=== PATIENT | female | born 1940 | race Two or more races ===

== ENCOUNTER 2017-03-01 13:36 | Emergency (ER) | payer OTHER ==
[2017-03-01 13:41] VITALS: BP 166/90; PULSE 84; TEMP 97.4; BMI 31.2
--- NOTE | 2017-03-01 14:20 | PDOC ---
History of Present Illness - General Chief Complaint: Vomiting/Diarrhea Stated Complaint: DIZZINESS, VOMITING Time Seen by Provider: 03/01/17 14:00 History Source: Patient Exam Limitations: No Limitations - History of Present Illness Initial Comments: 03/01/17 14:15 76 yo F with h/o HTN here with c/o feeling dizzy with nausea and loose stool. pt states awoke with symptoms this morning. no weakness does describe vertigo. has felt imbalanced like " shes drunk" when walking no vision changes. no focal weakness. no other mod factors. no tinnitus. no h/o cva. no other complaints. no new medications. reports three loose watery stools, all nonbloody. no abd pain. Timing/Duration: 24 hours Severity: mild Past History - Past Medical History Allergies/Adverse Reactions: Allergies Allergy/AdvReac Type Severity Reaction Status Date / Time No Known Drug Allergies Allergy Verified 03/01/17 13:41 SEAFOOD Allergy FACE AND Uncoded 03/01/17 13:41 MOUTH SWELLING Home Medications: Ambulatory Orders Losartan/Hydrochlorothiazide [Losartan-Hctz 100-25 mg Tab] 1 each PO DAILY 04/14 Aspirin [ASA -] 325 mg PO DAILY #0 tablet 04/18/15 Meclizine HCl 25 mg PO QID PRN #20 tablet 03/01/17 Anemia: No Asthma: No Cancer: No Cardiac Disorders: No CVA: No COPD: No CHF: No Dementia: No Diabetes: No GI Disorders: No Disorders: No HTN: Yes Hypercholesterolemia: No Liver Disease: No Seizures: No Thyroid Disease: No Other medical history: vitamin D defficiency - Surgical History Abdominal Surgery: No Appendectomy: No Cardiac Surgery: No Cholecystectomy: Yes Lung Surgery: No Neurologic Surgery: No Orthopedic Surgery: No - Psycho/Social/Smoking Cessation Hx Suicidal Ideation: No Smoking History: Never smoked Have you smoked in the past 12 months: No Information on smoking cessation initiated: No Hx Alcohol Use: No Drug/Substance Use Hx: No Substance Use Type: None Hx Substance Use Treatment: No Review of Systems - Review of Systems Constitutional: No: Chills, Diaphoresis HEENTM: No: Eye Pain, Blurred Vision, Throat Pain Respiratory: No: Cough, Orthopnea, Shortness of Breath Cardiac (ROS): No: See HPI, Chest Pain, Edema ABD/GI: Yes: Diarrhea, Nausea, Vomiting : No: Burning, Dysuria Musculoskeletal: No: Muscle Weakness Neurological: Yes: Unsteady Gait, Other (vertigo) Psychiatric: No: Anxiety, Depression All Other Systems: Reviewed and Negative *Physical Exam - Vital Signs Last Vital Signs Temp Pulse Resp BP Pulse Ox 97.4 F L 84 17 166/90 98 03/01/17 13:39 03/01/17 13:39 03/01/17 13:39 03/01/17 13:39 03/01/17 13:39 - Physical Exam General Appearance: Yes: Nourished HEENT: positive: Normal ENT Inspection. negative: Nasal Congestion, Rhinorrhea Respiratory/Chest: positive: Lungs Clear, Normal Breath Sounds. negative: Respiratory Distress, Accessory Muscle Use Cardiovascular: positive: Regular Rhythm, Regular Rate. negative: Edema Gastrointestinal/Abdominal: positive: Normal Bowel Sounds. negative: Tender, Tenderness Musculoskeletal: positive: Normal Inspection. 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 neg romberg pos hallpike to left. ) Heart Score/ECG Review - ECG Intrepretation Rhythm: Regular Rhythm Comment:: 03/01/17 14:31 rate 64 bpm, no st elevation or depression. - [place]: Normal ED Treatment Course - LABORATORY CBC & Chemistry Diagram: 03/01/17 14:30 03/01/17 14:30 Medical Decision Making - Medical Decision Making 03/01/17 14:29 6 yo F with h/o HTN here wtih vertigo since this am, awoke with sxs, n/v. differential likley peripheral vertigo. normal cerebellar examand post hallpikes to right. plan meclizine, labs lytes and ct . reassess. 03/01/17 17:09 pt states feeling better after meclizine. head ct normal. will dc home fu pcp. given rx for meclizline *DC/Admit/Observation/Transfer Diagnosis at time of Disposition: Positional vertigo - Discharge Dispostion Admit: No - Prescriptions Prescriptions: Meclizine HCl 25 mg PO QID PRN #20 tablet PRN Reason: Vertigo - Referrals Referrals: Aurelia Bhatia [Primary Care Provider] - - Patient Instructions Printed Discharge Instructions: Benign Paroxysmal Positional Vertigo Additional Instructions: necesita hacer carmen rohith con tu medico, . puede daniel la medicine meclizine, 25 mg cada 6 horas si necesita por vertigos. si tiene mas problemas con caminando, or vomitando, devuelve immediamente. Print Language: MALIAN
[2017-03-01] MEDS ORDERED: MECLIZINE HCL 25 MG TABLET (FP) PO ONE (14:31)
[2017-03-01] MEDS ORDERED: SODIUM CHLORIDE 0.9% 1000 ML INFUS.BAG IV ONE (14:33)
[2017-03-01] MEDS ORDERED: MECLIZINE HCL 25 MG TABLET (FP) ONE (14:36)
[2017-03-01 14:46] LABS: BASOPHIL 0.7 % (0-2.0); MCH 29.7 pg (25.7-33.7); MCHC 33.3 g/dl (32.0-36.0); MEAN CELL VOLUME 89.1 fl (80-96); MEAN PLT VOLUME 9.8 fl (7.5-11.1); NEUTROPHILS 79.6 % (42.8-82.8); PLATELET COUNT 116 K/MM3 (134-434); RDW 14.3 % (11.6-15.6); WHITE BLOOD COUNT 5.1 K/mm3 (4.0-10.0)
[2017-03-01 15:25] LABS: ALBUMIN 3.4 g/dl (3.4-5.0); ALK PHOS 87 U/L (45-117); ANION GAP 9 (8-16); BILIRUBIN,TOTAL 0.6 mg/dL (0.2-1.0); CALCIUM 8.9 mg/dL (8.5-10.1); CO2 28 mmol/L (21-32); COCKROFT - GAULT 111.3755; CREATININE 0.5 mg/dL (0.55-1.02); GLUCOSE,RANDOM 100 mg/dL (74-106); SGOT/AST 15 U/L (15-37); SGPT/ALT 15 U/L (12-78); TOT PROT 6.8 g/dl (6.4-8.2)
--- NOTE | 2017-03-01 17:20 | EKG ---
Test Reason : Blood Pressure : / mmHG Vent. Rate : 064 BPM Atrial Rate : 064 BPM P-R Int : 214 ms QRS Dur : 090 ms QT Int : 420 ms P-R-T Axes : 050 006 040 degrees QTc Int : 433 ms SINUS RHYTHM WITH 1ST DEGREE A-V BLOCK OTHERWISE NORMAL ECG NO PREVIOUS ECGS AVAILABLE Confirmed by ROXANE NEFF, DEWEY ([id number]) on 03/01/2017 5:19:59 PM Referred By: Confirmed By:DEWEY BETTS MD
== END 2017-03-01 17:36 | disposition home or self-care (01) ==
LOC: JER 13:36
DX: H81.10 Benign paroxysmal vertigo, unspecified ear (principal); I10 Essential (primary) hypertension; E55.9 Vitamin D deficiency, unspecified
CPT/HCPCS: 36415; 70450-TC; 80053; 85025; 93005; 93010; 99283-25

== ENCOUNTER 2019-02-27 10:50 | Observation (INO) | payer OTHER ==
[2019-02-27] MEDS ORDERED: MECLIZINE HCL 12.5 MG TABLET PO ONE (11:48)
--- NOTE | 2019-02-27 11:53 | PDOC ---
History of Present Illness - General Chief Complaint: Lightheaded Stated Complaint: LIGHT HEADED Time Seen by Provider: 02/27/19 11:29 History Source: Patient Exam Limitations: No Limitations - History of Present Illness Initial Comments: 02/27/19 11:49 78 y/o female with PMH of HTN presents to the ED with complaints of dizzness . per patient and pateints son, she wok up this morning with some associated dizziness and nausea. She had some trouble walking and she states that she "fells as if shes drunk", as she felt like she was swaying from side to side. It is not related to position, moving her head form side to side or getting up quicly does not change the intensity. SHe did have one episode of diarrhea however no vomiting. She denies any inner ear pain or any other systemic symptoms. She was here about a year ago with similar symptoms however did not see an ENT or neurologist. She denies any sick contacts or any recent travel . she denies any chest pains or any shortness of breath. Timing/Duration: 1-3 hours Severity: mild Associated Symptoms: denies: chest pain, cough, shortness of breath Past History - Travel Traveled outside of the country in the last 30 days: No Close contact w/someone who was outside of country & ill: No - Past Medical History Allergies/Adverse Reactions: Allergies Allergy/AdvReac Type Severity Reaction Status Date / Time No Known Drug Allergies Allergy Verified 02/27/19 11:41 SEAFOOD Allergy FACE AND Uncoded 02/27/19 11:41 MOUTH SWELLING Home Medications: Ambulatory Orders Losartan/Hydrochlorothiazide [Losartan-Hctz 100-25 mg Tab] 1 each PO DAILY 04/14 Meclizine HCl 25 mg PO QID PRN #20 tablet 03/01/17 Cholecalciferol (Vitamin D3) [Vitamin D3] 5,000 unit PO WEEKLY 02/27/19 Anemia: No Asthma: No Cancer: No Cardiac Disorders: No CVA: No COPD: No CHF: No Dementia: No Diabetes: No GI Disorders: No Disorders: No HTN: Yes Hypercholesterolemia: No Liver Disease: No Seizures: No Thyroid Disease: No - Surgical History Abdominal Surgery: No Appendectomy: No Cardiac Surgery: No Cholecystectomy: Yes Lung Surgery: No Neurologic Surgery: No Orthopedic Surgery: No - Immunization History Immunization Up to Date: No - Suicide/Smoking/Psychosocial Hx Smoking History: Never smoked Have you smoked in the past 12 months: No Information on smoking cessation initiated: No Hx Alcohol Use: Yes Drug/Substance Use Hx: No Substance Use Type: None Hx Substance Use Treatment: No Review of Systems - Review of Systems Able to Perform ROS?: Yes Is the patient limited [place] proficient: No Constitutional: No: Fever, Weakness HEENTM: No: Blurred Vision Respiratory: No: Shortness of Breath Cardiac (ROS): No: Chest Pain, Palpitations ABD/GI: Yes: Diarrhea, Nausea : No: Burning, Dysuria Musculoskeletal: No: Back Pain Neurological: Yes: Dizziness. No: Numbness *Physical Exam - Vital Signs Last Vital Signs Temp Pulse Resp BP Pulse Ox 97.6 F 69 16 185/80 H 99 02/27/19 11:00 02/27/19 11:00 02/27/19 11:00 02/27/19 11:00 02/27/19 11:00 - Physical Exam General Appearance: Yes: Nourished HEENT: positive: Normal Voice Neck: positive: Normal Thyroid Respiratory/Chest: positive: Lungs Clear, Normal Breath Sounds Cardiovascular: positive: Regular Rhythm, Regular Rate, S1, S2, Edema (trace) Gastrointestinal/Abdominal: positive: Flat, Soft. negative: Tender Musculoskeletal: negative: CVA Tenderness Neurologic: positive: Fully Oriented, Motor Strength 5/5, Finger to Nose ( delayed B/L ), Other (gait: pateint was veering to the right while walking ) ED Treatment Course - RADIOLOGY Radiology Studies Ordered: Category Date Time Status HEAD CT WITHOUT CONTRAST [CT] Stat CT Scan 02/27/19 11:48 Ordered Medical Decision Making - Medical Decision Making 02/27/19 11:58 cbc/cmp/cardaic profle ekg fluids/meclizine head CT DDX: *DC/Admit/Observation/Transfer - Discharge Dispostion Condition at time of disposition: Stable - Referrals - Patient Instructions - Post Discharge Activity
[2019-02-27] MEDS ORDERED: MECLIZINE HCL 12.5 MG TABLET ONE (11:58)
[2019-02-27 12:34] LABS: ALBUMIN 3.3 g/dl (3.4-5.0); ALK PHOS 91 U/L (45-117); ANION GAP 5 MMOL/L (8-16); BILIRUBIN,TOTAL 0.6 mg/dL (0.2-1); BLOOD UREA NITROGEN 20 mg/dL (7-18); CALCIUM 9.3 mg/dL (8.5-10.1); CHLORIDE 108 mmol/L (98-107); CO2 27 mmol/L (21-32); CREATININE 0.5 mg/dL (0.55-1.3); GLUCOSE,RANDOM 124 mg/dL (74-106); POTASSIUM 4.5 mmol/L (3.5-5.1); SGOT/AST 17 U/L (15-37); SGPT/ALT 17 U/L (13-61); SODIUM 139 mmol/L (136-145)
--- NOTE | 2019-02-27 13:02 | PDOC ---
*Physical Exam - Vital Signs Last Vital Signs Temp Pulse Resp BP Pulse Ox 97.6 F 69 16 185/80 H 99 02/27/19 11:00 02/27/19 11:00 02/27/19 11:00 02/27/19 11:00 02/27/19 11:00 <Víctor Vogt - Last Filed: 02/27/19 13:02> - Vital Signs Last Vital Signs Temp Pulse Resp BP Pulse Ox 98.3 F 64 17 152/72 96 02/27/19 18:19 02/27/19 18:19 02/27/19 18:19 02/27/19 18:19 02/27/19 18:19 <Sanford Evangelista - Last Filed: 02/27/19 18:40> ED Treatment Course - LABORATORY CBC & Chemistry Diagram: 02/27/19 11:50 - ADDITIONAL ORDERS Additional order review: Laboratory Results 02/27/19 11:50 Sodium 139 Potassium 4.5 Chloride 108 H Carbon Dioxide 27 Anion Gap 5 L BUN 20 H Creatinine 0.5 L Creat Clearance w eGFR 119.64 Random Glucose 124 H Calcium 9.3 Total Bilirubin 0.6 AST 17 ALT 17 Alkaline Phosphatase 91 Creatine Kinase 50 Troponin I < 0.02 Total Protein 7.0 Albumin 3.3 L - Medications Given in the ED: ED Medications Discontinued Medications Generic Name Dose Route Start Last Admin Trade Name Freq PRN Reason Stop Dose Admin Meclizine HCl 12.5 mg 02/27/19 11:48 02/27/19 12:02 Antivert - PO 02/27/19 11:49 12.5 mg ONCE ONE Administration <Víctor Vogt - Last Filed: 02/27/19 13:02> - LABORATORY CBC & Chemistry Diagram: 02/27/19 18:05 02/27/19 11:50 - ADDITIONAL ORDERS Additional order review: Laboratory Results 02/27/19 11:50 Sodium 139 Potassium 4.5 Chloride 108 H Carbon Dioxide 27 Anion Gap 5 L BUN 20 H Creatinine 0.5 L Creat Clearance w eGFR 119.64 Random Glucose 124 H Calcium 9.3 Total Bilirubin 0.6 AST 17 ALT 17 Alkaline Phosphatase 91 Creatine Kinase 50 Troponin I < 0.02 Total Protein 7.0 Albumin 3.3 L - Medications Given in the ED: ED Medications Discontinued Medications Generic Name Dose Route Start Last Admin Trade Name Freq PRN Reason Stop Dose Admin Meclizine HCl 12.5 mg 02/27/19 11:48 02/27/19 12:02 Antivert - PO 02/27/19 11:49 12.5 mg ONCE ONE Administration <Sanford Evangelista - Last Filed: 02/27/19 18:40> Medical Decision Making - Medical Decision Making CT Head w/o evidence of acute pathology 02/27/19 13:02 <Víctor Vogt - Last Filed: 02/27/19 13:02> *DC/Admit/Observation/Transfer <Víctor Vogt - Last Filed: 02/27/19 13:02> - Discharge Dispostion Decision to Admit order: Yes <Sanford Evangelista - Last Filed: 02/27/19 18:40> Diagnosis at time of Disposition: Unsteady gait - Discharge Dispostion Condition at time of disposition: Stable
--- NOTE | 2019-02-27 14:23 | PDOC ---
Documentation entered by Dorie Fernandez SCRIBE, acting as scribe for Sanford Evangelista MD. Sanford Evangelista MD: This documentation has been prepared by the Jim burns Nirvannie, SCRIBE, under my direction and personally reviewed by me in its entirety. I confirm that the documentation accurately reflects all work, treatment, procedures, and medical decision making performed by me. Attending Attestation - Resident Resident Name: RadhamirellaKimberly - ED Attending Attestation I have performed the following: I have examined & evaluated the patient, The case was reviewed & discussed with the resident, I agree w/resident's findings & plan - HPI HPI: 02/27/19 14:11 CC: Dizziness HPI: The patient is a 78 year old female, with a significant past medical history of HTN, who presents to the emergency department with, 1 day of constant dizziness , worsening with walking with associated unsteadiness. She denies her dizziness to worsen with positioning. She denies recent chest pain or shortness of breath. Allergies: Seafood Primary Care Physician: Dr. Bhatia - Physicial Exam PE: 02/27/19 14:11 Exam Vitals: Triage Vital signs reviewed General Appearance: no acute distress, well nourished well developed, Head: Atraumatic, normocephalic Neck: Supple;No Nuchal rigidity Chest Wall: Nontender Cardiac: Regular rate and rhythm, no murmurs, no rubs, no gallops, Lungs: Clear to auscultation bilateral, good air movement bilaterally, Abdomen: Soft, nondistended, normal bowel sounds, nontender to palpation Rectal: Exam deferred Extremities: Full range of motion to all extremities, no cyanosis, clubbing, or edema Skin: Warm and dry, no rashes or lesions, no petechiae +Neuro: AOX3; Cranial Nerves 2-12 grossly intact, Ataxic gait. Psych: normal mood, normal affect - Medical Decision Making 02/27/19 16:49 Patient with chronic persistent unsteady gait feeling of being drunk with veering to the left and more difficulty with left finger to nose greater than right NIHSS score 1. Not TPA candidate Patient treated with IV fluids and meclizine history and examination not consistent with a clear-cut benign positional vertigo type story given age and risk factors we'll observe overnight for neurology consultation and possible MRI.
[2019-02-27] MEDS ORDERED: ENALAPRILAT DIHYDRATE 2.5 MG/2 ML VIAL IVPB PRN (17:04)
--- NOTE | 2019-02-27 17:27 | HP ---
CHIEF COMPLAINT: dizziness PCP: HISTORY OF PRESENT ILLNESS: The patient is a 78 year old female with a PMH of HTN, macular degeneration that presented to the hospital complaining of dizziness that started this morning at 7 AM. She was at home, preparing to work but started feeling "like drunk" and decided to come to the hospital. In Emergency Room she was given Meclizine. When I saw the patient she was still complainingof dizziness. She had similar symptoms few years ago, was prescribed Meclizine but her symptoms resolved and she didn't take it. The patient denies LOC, weakness, vision changes, headache, chest pain, palpitations. She took her morning BP medication today. 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 Family History: Mother: Asthma Father: htn 3 children, daughter ca Allergies No Known Drug Allergies Allergy (Verified 02/27/19 11:41) SEAFOOD Allergy (Uncoded 02/27/19 11:41) FACE AND MOUTH SWELLING HOME MEDICATIONS: Home Medications Medication Instructions Recorded Losartan/Hydrochlorothiazide 1 each PO DAILY 04/14/15 [Losartan-Hctz 100-25 mg Tab] Meclizine HCl 25 mg PO QID PRN #20 tablet 03/01/17 Cholecalciferol (Vitamin D3) 5,000 unit PO WEEKLY 02/27/19 [Vitamin D3] REVIEW OF SYSTEMS CONSTITUTIONAL: Absent: fever, chills, diaphoresis, generalized weakness, malaise, loss of appetite, weight change HEENT: Absent: rhinorrhea, nasal congestion, throat pain, throat swelling, difficulty swallowing, visual changes CARDIOVASCULAR: Absent: chest pain, syncope, palpitations, irregular heart rate, lightheadedness , peripheral edema RESPIRATORY: Absent: cough, shortness of breath, dyspnea with exertion, orthopnea, wheezing, GASTROINTESTINAL: Absent: abdominal pain, abdominal distension, nausea, vomiting, diarrhea, constipation GENITOURINARY: Absent: dysuria, frequency, urgency, hesitancy, hematuria, MUSCULOSKELETAL: Absent: myalgia, arthralgia, joint swelling, back pain ENDOCRINE: Absent: unexplained weight gain, unexplained weight loss NEUROLOGIC: dizziness, unsteady gait, Absent: headache, focal weakness or paresthesias, seizure PSYCHIATRIC: Absent: anxiety, depression, PHYSICAL EXAMINATION Vital Signs - 24 hr 02/27/19 02/27/19 02/27/19 11:00 16:00 16:02 Temperature 97.6 F Pulse Rate 69 Pulse Rate [ 68 65 Left Radial] Respiratory 16 Rate Blood Pressure 185/80 H Blood Pressure 187/77 H 211/64 H [Right Arm] O2 Sat by Pulse 99 Oximetry (%) GENERAL: Awake, alert, and fully oriented, in no acute distress. HEAD: Normal with no signs of trauma. EYES: Extraocular movements intact, sclera anicteric, conjunctiva clear. No lid lag. EARS, NOSE, THROAT: Moist mucous membranes. NECK: Normal range of motion, supple without lymphadenopathy, JVD, or masses. LUNGS: Breath sounds equal, clear to auscultation bilaterally. No wheezes, and no crackles. No accessory muscle use. HEART: Regular rate and rhythm, normal S1 and S2 without murmur, rub or gallop. ABDOMEN: Soft, nontender, not distended, normoactive bowel sounds, no guarding, no rebound. MUSCULOSKELETAL: Normal range of motion at all joints. UPPER EXTREMITIES: No peripheral edema. LOWER EXTREMITIES: 2+ pulses. No peripheral edema. NEUROLOGICAL: Non focal. Normal speech. PSYCHIATRIC: Cooperative. Good eye contact. Appropriate mood and affect. SKIN: Warm, dry, no rashes or lesions noted. Laboratory Results - last 24 hr 02/27/19 11:50 Sodium 139 Potassium 4.5 Chloride 108 H Carbon Dioxide 27 Anion Gap 5 L BUN 20 H Creatinine 0.5 L Creat Clearance w eGFR 119.64 Random Glucose 124 H Calcium 9.3 Total Bilirubin 0.6 AST 17 ALT 17 Alkaline Phosphatase 91 Creatine Kinase 50 Troponin I < 0.02 Total Protein 7.0 Albumin 3.3 L ASSESSMENT/PLAN: The patient is a 78 year old female with a PMH of HTN, macular degeneration that presented to the hospital complaining of dizziness that started this morning, she is admitted to telemetry r/o TIA. R/o TIA: -possible cerebellar infarct, may be vertigo or may be caused by elevated BP -CT head negative, will obtain MRI brain -stroke protocol -carotid US -ECHO ordered -fall precautions -avoid HCTZ, possible cause of dizziness also encourage PO water intake Hypertensive emergency: -unknown cause, the pt took her medication today -will give Enalapril -continue Norvasc 5 mg tomorrow -will follow up ECHO -telemetry monitoring -ekg-NSR, bradycardia DVT PPX: scds F/E/N; no/no changes/low Na Dispo: telemetry Problem List - Problem (1) Hypertensive emergency Code(s): I16.1 - HYPERTENSIVE EMERGENCY (2) Positional vertigo Code(s): H81.10 - BENIGN PAROXYSMAL VERTIGO, UNSPECIFIED EAR Visit type - Emergency Visit Emergency Visit: Yes ED Registration Date: 02/27/19 Care time: The patient presented to the Emergency Department on the above date and was hospitalized for further evaluation of their emergent condition. - New Patient This patient is new to me today: Yes Date on this admission: 02/27/19 - Critical Care Critical Care patient: No
--- NOTE | 2019-02-27 18:17 | CONSULT ---
Consult - text type - Consultation Consultation Note: NEUROLOGY CONSULT GREATLY APPRECIATED: Events reviewed and discussed with Dr. Bell and MIGUELANGEL Vasquez. Daughter and son at bedside. 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 PMH sig for: HTN, macular degeneration. Maintained on losartan/HCTZ. Has minimal assistance with ADL's from family. Ambulates independently. Surgical hx includes R TKR. Upon going from sitting to standing this AM, experienced brief "room-spinning" sensation and once walking "felt drunk" w nausea/diarrhea. Has felt a similar sensation four years ago requiring hospitalization here, which was attributed to "inner ear problem." Notes history of "Migraines" since childhood rare since menapause. +FH of SAEZ's in her son (severe leg pains as well.) Pt. denies SAEZ today. Dizziness is now markedly improved. Head CT (report available): no acute process/Normal Carotid duplex: no sig. stenosis. Calcified intimal plaque and thyroid nodule noted. MRI of brain (reviewed, not yet reported): Scattered microvascular changes including left internal capsule lacune. No cerebellar CVA. JOEY: BP 185/80. Cor reg. No bruit. Neck supple. Neg SLR. NEURO: Awake, alert. Ox "[facility]." February 28, 2019. TRUMP -> PMT. 12/29 recall @ 3 min. CNII-CNXII: EOM's full without nystagmus. Full otoole. No facial. Motor: No drift. Strength normal. No cogwheeling. Reflexes normal except AJ's B/L. Plantars silent. Coordination: No FTN dystaxia. Sensation: Normal to vibration. Romberg +/- Gait: Variable, unsteady. Impression: Non-focal exam Etiology of "dizziness", nausea, imbalance, confusion uncertain but would consider Hypertensive encephalopathy, labyrinthitis. Suggest: Orthostatic BP's Lower Systolic BP to < 130s and encourage compliance with meds D/C Meclizine (anti-cholinergic, may increase confusion) Await UA, C & S, B12, TSH, RPR Work up thyroid nodule program services assistant for home safety Thank you very much, Denny Dumont MD
[2019-02-27 18:27] LABS: BASO % 0.9 % (0-2.0); EOS % 1.1 % (0-4.5); HEMATOCRIT 37.1 % (32.4-45.2); HEMOGLOBIN 12.6 GM/dL (10.7-15.3); LYMPH % 23.7 % (8-40); MCH 29.7 pg (25.7-33.7); MCHC 33.9 g/dl (32.0-36.0); MEAN CELL VOLUME 87.6 fl (80-96); MEAN PLT VOLUME 10.1 fl (7.5-11.1); MONO % 7.8 % (3.8-10.2); NEUT % 66.5 % (42.8-82.8); PLATELET COUNT 132 K/MM3 (134-434); RBC 4.23 M/mm3 (3.60-5.2); RDW 14.7 % (11.6-15.6); WHITE BLOOD COUNT 4.6 K/mm3 (4.0-10.0)
[2019-02-27 18:33] LABS: URINE APPEARANCE CLEAR; URINE BILIRUBIN NEGATIVE (NEGATIVE); URINE COLOR YELLOW; URINE GLUCOSE (UA) NEGATIVE (NEGATIVE); URINE KETONE NEGATIVE (NEGATIVE); URINE LEUK ESTERASE NEGATIVE (NEGATIVE); URINE NITRITE NEGATIVE (NEGATIVE); URINE PROTEIN NEGATIVE (NEGATIVE); URINE UROBILINOGEN 0.2 mg/dL (0.2-1.0)
--- NOTE | 2019-02-27 19:37 | PN ---
Teaching Attending Note Name of Resident: Lora Griffin ATTENDING PHYSICIAN STATEMENT I saw and evaluated the patient. I reviewed the resident's note and discussed the case with the resident. I agree with the resident's findings and plan as documented. CC: I'm dizzy HPI: Ms Jett is a pleasant 78 year old female who comes in with dizziness. She says it began this morning. It's made worse with change in position. She felt unsteady when walking but did not fall. She had this once in the past but not this severe. She had nausea but no vomiting associated with it. Because of this she came into the ED. She denies fevers, chills, recent infections, passing out , changes in vision, tinnitus, chest pain, shortness of breath, abdominal pain, constipation, diarrhea, or swelling. PMHx: HTN, macular degeneration PSH: cataract removal Allergies: NKDA Meds Home Medications Medication Instructions Recorded Cholecalciferol (Vitamin D3) 5,000 unit PO WEEKLY 02/27/19 [Vitamin D3] Amlodipine Besylate [Norvasc -] 5 mg PO DAILY 30 Days #30 tablet 02/28/19 SHx: denies tobacco and recreational drug use. Rare alcohol intake FHx: mother with asthma ROS: full review of systems obtained, as per HPI and otherwise negative OBJECTIVE: Gen: nad, obese HEENT: perrla, eomi, no nystagmus Pulm: ctab w/o w/r/r CV: rrr w/o m/r/g Abd: +bs, s/nt/nd Ext: no c/c/e ASSESSMENT AND PLAN: Problem List - Problems (1) Hypertensive emergency Assessment/Plan: -will give dose of IV enalapril -stop HCTZ as can cause vertigo -add amlodipine -monitor Code(s): I16.1 - HYPERTENSIVE EMERGENCY (2) Positional vertigo Assessment/Plan: -consult neurology -ECHO, carotid ultrasound, MRI ordered -meclizine ordered -monitor overnight -PT consult Code(s): H81.10 - BENIGN PAROXYSMAL VERTIGO, UNSPECIFIED EAR
[2019-02-27] MEDS ORDERED: HEPARIN NA (PORCINE) 5,000 UNITS/ML 1ML VIAL SQ SCH (22:00)
[2019-02-27 22:03] VITALS: BMI 34.6
[2019-02-28 06:39] VITALS: TEMP 98.4
[2019-02-28 07:37] LABS: BASO % 0.7 % (0-2.0); EOS % 1.7 % (0-4.5); HEMATOCRIT 35.4 % (32.4-45.2); HEMOGLOBIN 11.5 GM/dL (10.7-15.3); LYMPH % 25.8 % (8-40); MCH 29.2 pg (25.7-33.7); MCHC 32.4 g/dl (32.0-36.0); MEAN PLT VOLUME 10.2 fl (7.5-11.1); MONO % 8.8 % (3.8-10.2); PLATELET COUNT 118 K/MM3 (134-434); RBC 3.94 M/mm3 (3.60-5.2); RDW 14.9 % (11.6-15.6); WHITE BLOOD COUNT 3.5 K/mm3 (4.0-10.0)
[2019-02-28 07:52] LABS: ALBUMIN 2.7 g/dl (3.4-5.0); ALK PHOS 76 U/L (45-117); ANION GAP 5 MMOL/L (8-16); BILIRUBIN,TOTAL 0.5 mg/dL (0.2-1); BLOOD UREA NITROGEN 21 mg/dL (7-18); CALCIUM 8.5 mg/dL (8.5-10.1); CHLORIDE 110 mmol/L (98-107); CHOLESTEROL 203 mg/dL (50-200); CO2 27 mmol/L (21-32); CREATININE 0.5 mg/dL (0.55-1.3); GLUCOSE,RANDOM 80 mg/dL (74-106); HDL CHOLESTEROL 84 mg/dL (40-60); MAGNESIUM 2.4 mg/dL (1.8-2.4); PHOSPHOROUS 3.8 mg/dL (2.5-4.9); POTASSIUM 3.7 mmol/L (3.5-5.1); SGOT/AST 13 U/L (15-37); SGPT/ALT 14 U/L (13-61); SODIUM 142 mmol/L (136-145); TOT PROT 5.8 g/dl (6.4-8.2); TRIGLYCERIDES 43 mg/dL (0-150)
--- NOTE | 2019-02-28 09:39 | ECHO ---
Name: RASHID, TEODORA Exam:Adult Echocardiogram Study Date: 02/28/2019 08:38 AM Age: 78 yrs Reason For Study: TIA Height: 60 in Weight: 169 lb BSA: 1.7 m2 MMode/2D Measurements & Calculations IVSd: 0.95 cm Ao root diam: 2.8 cm LVIDd: 4.1 cm LA dimension: 2.4 cm LVIDs: 2.2 cm LVPWd: 1.0 cm EDV(Teich): 74.7 ml LVOT diam: 2.0 cm ESV(Teich): 17.0 ml LAV (MOD-bp): 41.4 ml Doppler Measurements & Calculations MV E max dillon: 82.0 cm/sec Ao V2 max: 153.4 cm/sec MV A max dillon: 74.7 cm/sec Ao max P.4 mmHg MV E/A: 1.1 MV dec time: 0.21 sec TONIA(V,D): 2.5 cm2 LV V1 max P.2 mmHg MR max dillon: 401.0 cm/sec LV V1 max: 124.2 cm/sec MR max P.3 mmHg TR max dillon: 244.3 cm/sec PA V2 max: 114.0 cm/sec TR max P.9 mmHg PA max P.2 mmHg Med Peak E' Dillon: 8.7 cm/sec PI Vmax: 122.2 cm/sec Med E/e': 9.4 Lat Peak E' Dillon: 10.3 cm/sec Lat E/e': 7.9 Left Ventricle The left ventricular size, thickness and function are normal. Ejection Fraction = 60-65%. Left Ventri cular Filling pattern is normal for age. Right Ventricle The right ventricle is normal in size and function. Atria Normal left and right atrial size and function. The interatrial septum is not well seen but appears g rossly intact. Mitral Valve The mitral valve is normal in structure and function. There is no mitral valve stenosis. There is mil d mitral regurgitation. Tricuspid Valve The tricuspid valve is normal in structure and function. There is mild tricuspid regurgitation. Right ventricular systolic pressure is normal. Aortic Valve The aortic valve is trileaflet. No hemodynamically significant valvular aortic stenosis. No aortic regurgitation is present. Pulmonic Valve The pulmonic valve is not well seen, but is grossly normal. There is no pulmonic valvular stenosis. T here is no pulmonic valvular regurgitation. Great Vessels The aortic root is normal size. Pericardium/Pleura There is no pericardial effusion. Interpretation Summary The left ventricular size, thickness and function are normal Ejection Fraction = 60-65%. The right ventricle is normal in size and function. The interatrial septum is not well seen but appears grossly intact. There is mild mitral regurgitation. There is mild tricuspid regurgitation. Right ventricular systolic pressure is normal. There is no pericardial effusion. MD Cervantes *Michael 02/28/2019 09:38 AM
[2019-02-28] MEDS ORDERED: amLODIPine BESYLATE 5 MG TABLET (FP) PO SCH (10:00)
[2019-02-28 10:44] VITALS: BP 161/77; PULSE 72
--- NOTE | 2019-02-28 14:20 | DS ---
Physical Exam: SUBJECTIVE: Patient seen and examined. She is feeling better today, no more dizziness. OBJECTIVE: Vital Signs Period Temp Pulse Resp BP Sys/[place] Pulse Ox Last 24 Hr 98.3 F-98.6 F 60-81 17-18 129-211/57-77 96-98 PHYSICAL EXAM GENERAL: The patient is awake, alert, and fully oriented, in no acute distress. HEAD: Normal with no signs of trauma, twin on ride side of her head/ forehead. EYES: Extraocular movements intact, conjunctiva clear. ENT: Moist mucous membranes. NECK: Trachea midline, full range of motion, supple. LUNGS: Breath sounds equal, clear to auscultation bilaterally, no wheezes, no crackles. HEART: Regular rate and rhythm, S1, S2 without murmur, rub or gallop. ABDOMEN: Obese, soft, nontender, nondistended, normoactive bowel sounds, no guarding, no rebound EXTREMITIES: 2+ pulses, warm, well-perfused, no edema. NEUROLOGICAL: Non focal. Normal speech, gait not observed. PSYCH: Normal mood, normal affect. SKIN: Warm, dry, normal turgor, no rashes, LABS Laboratory Results - last 24 hr 02/27/19 02/27/19 02/28/19 18:05 18:20 05:30 WBC 4.6 3.5 L RBC 4.23 3.94 Hgb 12.6 11.5 Hct 37.1 35.4 MCV 87.6 90.0 MCH 29.7 29.2 MCHC 33.9 32.4 RDW 14.7 14.9 Plt Count 132 L 118 L MPV 10.1 10.2 Absolute Neuts (auto) 3.1 2.2 Neutrophils % 66.5 63.0 Lymphocytes % 23.7 D 25.8 Monocytes % 7.8 8.8 Eosinophils % 1.1 1.7 Basophils % 0.9 0.7 Nucleated RBC % 0 0 Sodium Potassium Chloride Carbon Dioxide Anion Gap BUN Creatinine Creat Clearance w eGFR Random Glucose Calcium Phosphorus Magnesium Total Bilirubin AST ALT Alkaline Phosphatase Total Protein Albumin Triglycerides Cholesterol Total LDL Cholesterol HDL Cholesterol Vitamin B12 TSH Urine Color Yellow Urine Appearance Clear Urine pH 7.0 Ur Specific [place] 1.010 Urine Protein Negative Urine Glucose (UA) Negative Urine Ketones Negative Urine Blood Negative Urine Nitrite Negative Urine Bilirubin Negative Urine Urobilinogen 0.2 Ur Leukocyte Esterase Negative RPR Titer 05/03/19 05/03/19 05/03/19 05:30 05:30 05:30 WBC RBC Hgb Hct MCV MCH MCHC RDW Plt Count MPV Absolute Neuts (auto) Neutrophils % Lymphocytes % Monocytes % Eosinophils % Basophils % Nucleated RBC % Sodium 142 Potassium 3.7 Chloride 110 H Carbon Dioxide 27 Anion Gap 5 L BUN 21 H Creatinine 0.5 L Creat Clearance w eGFR 119.64 Random Glucose 80 Calcium 8.5 Phosphorus 3.8 Magnesium 2.4 Total Bilirubin 0.5 AST 13 L ALT 14 Alkaline Phosphatase 76 Total Protein 5.8 L Albumin 2.7 L Triglycerides 43 Cholesterol 203 H Total LDL Cholesterol 119 H HDL Cholesterol 84 H Vitamin B12 372 TSH 2.16 Urine Color Urine Appearance Urine pH Ur Specific [place] Urine Protein Urine Glucose (UA) Urine Ketones Urine Blood Urine Nitrite Urine Bilirubin Urine Urobilinogen Ur Leukocyte Esterase RPR Titer Nonreactive HOSPITAL COURSE: The patient is a 78 year old female with a PMH of HTN, macular degeneration that presented to the hospital complaining of dizziness for 2-3 hours. She was at home, preparing to work but started feeling "like drunk" and decided to come to the hospital. She had similar episode of dizziness few years ago, was prescribed Meclizine but her symptoms resolved and she didn't continue take it. The patient denies LOC, weakness, vision changes, headache, chest pain, palpitations. She took her morning BP medication before coming to the hospital. In Emergency Room she was given Meclizine without improvement of her symptoms. The patient was also found to have elevated BP. She was admitted to telemetry to r/o TIA, vertigo, hypertensive emergency. She had CT head that was normal, followed by MRI with no acute pathology. She was seen by Neurology. She had also ECHO of her heart and carotid US that didn't reveal abnormalities. She had her BP controlled. The patient was discharged home with recommendation to stop taking HCTZ, Meclizine and continue to take Norvasc, f/u with PCP and Neurology. She also walked with PT and was safe to discharge home. Date of Admission:02/27/19 Date of Discharge: 02/28/19 Minutes to complete discharge: 35 Discharge Summary Reason For Visit: ATAXIA,UNSTEADY GAIT Current Active Problems Hypertensive emergency (Acute) Unsteady gait (Acute) Condition: Stable - Instructions Diet, Activity, Other Instructions: Ms Jett, you were admitted to the hospital for dizziness. We excluded that you had a stroke. we monitored your heart and you had ECHO of your heart and sonogram of carotid vessels that didn't show any acute abnormalities. we found thyroid nodule n sonogram that requires follow up. MEDICATIONS Please continue to take Norvasc 5 mg orally once a day. Please don't take Losartan/HCTZ because it is possible that it contributes to your dizziness. Please don't take Meclizine for the same reason as above. REFERRALS: Please See your primary care physician in a week. You may have your thyroid checked. See Neurologist in a 1-2 weeks. If you have dizziness, headache, balance problems, vision changes or worsening of any of your symptoms, call 911 or come back to Emergency Room as soon as possible. Referrals: Denny Dumont MD [Staff Physician] - Aurelia Bhatia [Primary Care Provider] - Disposition: HOME - Home Medications Comprehensive Discharge Medication List: Ambulatory Orders Cholecalciferol (Vitamin D3) [Vitamin D3] 5,000 unit PO WEEKLY 02/27/19 Amlodipine Besylate [Norvasc -] 5 mg PO DAILY 30 Days #30 tablet 02/28/19 Problem List - Problems (1) Hypertensive emergency Code(s): I16.1 - HYPERTENSIVE EMERGENCY (2) Positional vertigo Code(s): H81.10 - BENIGN PAROXYSMAL VERTIGO, UNSPECIFIED EAR This patient is new to me today: No Emergency Visit: Yes ED Registration Date: 02/27/19 Care time: The patient presented to the Emergency Department on the above date and was hospitalized for further evaluation of their emergent condition. Critical Care patient: No - Discharge Referral Referred to [facility] Med [facility] No
--- NOTE | 2019-02-28 16:33 | PN ---
Teaching Attending Note Name of Resident: Lora Griffin ATTENDING PHYSICIAN STATEMENT I saw and evaluated the patient. I reviewed the resident's note and discussed the case with the resident. I agree with the resident's findings and plan as documented. OBJECTIVE: Last Vital Signs Temp Pulse Resp BP Pulse Ox 36.9 C 72 18 161/77 97 02/28/19 06:00 02/28/19 09:52 02/28/19 09:00 02/28/19 09:52 02/28/19 09:00 Gen: nad Pulm: ctab w/o w/r/r CV: rrr w/o m/r/g Abd: +bs, s/nt/nd Ext: no c/c/e CBC, BMP 02/28/19 05:30 02/28/19 05:30 HC: Ms Jett is a very pleasant 78 year old female who comes in with hypertensive urgency and vertigo. She was admitted to telemetry observation. She had a head CT and MRI which were normal. She had an ECHO and carotid ultrasound which were normal. Her HCTZ was held as this can cause vertigo, she was given a dose of IV enalapril to lower her blood pressure and her HCTZ was changed to amlodipine. She was also given meclizine in the ED which improved her vertigo, however she was seen by neurology and he did not recommend further meclizine. She was seen by PT and ambulated. She is safe for discharge home. Problem List - Problems (1) Hypertensive emergency Code(s): I16.1 - HYPERTENSIVE EMERGENCY (2) Positional vertigo Code(s): H81.10 - BENIGN PAROXYSMAL VERTIGO, UNSPECIFIED EAR
== END 2019-02-28 15:16 | disposition home or self-care (01) ==
LOC: JER 10:50 → SUPCPDRO 10:50 → UNDOADMOB 14:05 → JERBED 14:05 → INTOOBSV 14:55 → OBSVTOIN 14:55 → JERBED 18:40 → J4W 19:54
PROVIDERS: ADMIT Internal Medicine; ATTEND Internal Medicine
DX: I16.1 Hypertensive emergency (principal); H81.10 Benign paroxysmal vertigo, unspecified ear; R26.81 Unsteadiness on feet; Z91.013 Allergy to seafood
CPT/HCPCS: 36415; 70450-TC; 70551-TC; 80053; 80061; 81003; 82550; 82607; 83721; 83735; 84100; 84443; 84484; 85025; 86593; 87086; 93306-TC; 93880-TC; 97116-GP; 97161-GP; 99285-25; G0378

== ENCOUNTER 2019-12-06 19:25 | Emergency (ER) | payer OTHER ==
[2019-12-06 19:39] VITALS: TEMP 98.2; BMI 34.5
--- NOTE | 2019-12-06 20:20 | PDOC ---
History of Present Illness - General Chief Complaint: Blood Pressure Problem Stated Complaint: HIGH BLOOD PRESSURE Time Seen by Provider: 12/06/19 20:20 - History of Present Illness Initial Comments: HPI: 79yo F with PMH of HTN presenting with high blood pressure readings. Patient states she checks her blood pressure intermittently and not at the same time everyday. Has been compliant with her blood pressure medication. Since yesterday has noted high BP levels in the 170s and 180s. Continued to check her BP today and when she saw a reading with 200s systolic, decided to come to the ER for further evaluation. Saw her PCP about one week ago and was told that her blood pressure was high but she does not remember the number and no medication changes were made. Has had an area of tenderness on her left calf x 1 week. No hemoptysis, no recent surgical history, no recent immobilization, no hormone use , no history of DVT or PE. Denies headache, vision changes, weakness, dizziness , syncope, chest pain, or shortness of breath. Feels she is at her baseline. No fevers or chills. PCP: Dr. Bhatia ROS: Constitutional: no fever, no chills HEENT: no throat pain, no dysphagia Cardiovascular: no chest pain, no palpitations Respiratory: no cough, no shortness of breath Gastrointestinal: no abdominal pain, no nausea Genitourinary: no dysuria, no hematuria Musculoskeletal: no myalgia, no arthralgia Skin: no rash, no itching Neurologic: no headache, no weakness Psych: no agitation, no anxiety PE: General: Awake, alert, and fully oriented, in no acute distress Head: No signs of trauma Eyes: EOMI, sclera anicteric ENT: Moist mucus membranes Neck: Normal ROM, supple Lungs: Lungs clear, Normal breath sounds Cardio: Regular rhythm, S1 and S2 present Abdomen: Soft, nontender. No guarding, no rebound, no masses Extremities: Normal range of motion, Distal pulses present, calf tenderness on left with palpable bulge SKIN: Warm, Dry, normal turgor Neurologic: Cranial nerves II through XII grossly intact. Normal speech ED Course/MDM: DDX including but not limited to hypertensive emergency vs urgency, ACS, PE/DVT Labs, EKG, CXR Duplex LLE 12/06/19 20:20 EKG: rate 59, Qtc 425, sinus, PACs, flattened twave in V2 also present in previous EKG in Jul 2019 12/06/19 21:18 US as reported by radiology: " EXAM#: TYPE/EXAM: RESULT : [id number] US/DUPLEX VASCUL US-1 LEG Color Doppler deep veins left leg Left leg pain and swelling Evaluation for DVT Normal flow and compressibility of the deep veins of the left leg from the groin to the popliteal fossa with no DVT noted. No hematoma or fluid collection identified Impression: No DVT noted deep veins left leg. " 12/06/19 22:35 CBC WBC 4.8 K/mm3 (4.0-10.0) 12/06/19 20:00 RBC 4.48 M/mm3 (3.60-5.2) 12/06/19 20: Hgb 13.1 GM/dL (10.7-15.3) 12/06/19 20:00 Hct 40.2 % (32.4-45.2) 12/06/19 20: MCV 89.7 fl (80-96) 12/06/19 20: MCH 29.3 pg (25.7-33.7) 12/06/19 20: MCHC 32.7 g/dl (32.0-36.0) 12/06/19 20: RDW 14.6 % (11.6-15.6) 12/06/19 20: Plt Count 139 K/MM3 (134-434) 12/06/19 20:00 MPV 10.5 fl (7.5-11.1) 12/06/19 20:00 Absolute Neuts (auto) 3.4 K/mm3 (1.5-8.0) 12/06/19 20:00 Neutrophils % 71.4 % (42.8-82.8) 12/06/19 20: Lymphocytes % 17.4 % (8-40) D 12/06/19 20: Monocytes % 8.1 % (3.8-10.2) 12/06/19 20: Eosinophils % 1.8 % (0-4.5) 12/06/19 20: Basophils % 1.3 % (0-2.0) 12/06/19 20: Nucleated RBC % 0 % (0-0) 12/06/19 20:00 No leukocytosis CMP Sodium 139 mmol/L (136-145) 12/06/19 22:40 Potassium 4.4 mmol/L (3.5-5.1) 12/06/19 22:40 Chloride 106 mmol/L (98-107) 12/06/19 22:40 Carbon Dioxide 28 mmol/L (21-32) 12/06/19 22:40 Anion Gap 5 MMOL/L (8-16) L 12/06/19 22:40 BUN 14.7 mg/dL (7-18) 12/06/19 22:40 Creatinine 0.7 mg/dL (0.55-1.3) 12/06/19 22:40 Est GFR (CKD-EPI)AfAm 96.18 12/06/19 22:40 Est GFR (CKD-EPI)NonAf 82.99 12/06/19 22:40 Random Glucose 121 mg/dL (74-106) H 12/06/19 22:40 Calcium 9.0 mg/dL (8.5-10.1) 12/06/19 22:40 Total Bilirubin 0.6 mg/dL (0.2-1) 12/06/19 22:40 AST 24 U/L (15-37) 12/06/19 22:40 ALT 17 U/L (13-61) 12/06/19 22:40 Alkaline Phosphatase 91 U/L (45-117) 12/06/19 22:40 Troponin I < 0.02 ng/ml (0.00-0.05) 12/06/19 20:00 Total Protein 7.2 g/dl (6.4-8.2) 12/06/19 22:40 Albumin 3.3 g/dl (3.4-5.0) L 12/06/19 22:40 Electrolytes unremarkable Cr normal Tpn undetectable CXR without acute pathology, my impression No signs of end-organ damage Patient to follow up with primary care physician Return precautions Stable for discharge 12/06/19 23:34 Past History - Past Medical History Allergies/Adverse Reactions: Allergies Allergy/AdvReac Type Severity Reaction Status Date / Time No Known Drug Allergies Allergy Verified 02/27/19 11:41 SEAFOOD Allergy FACE AND Uncoded 02/27/19 11:41 MOUTH SWELLING Home Medications: Ambulatory Orders Cholecalciferol (Vitamin D3) [Vitamin D3] 5,000 unit PO WEEKLY 02/27/19 Amlodipine Besylate [Norvasc -] 5 mg PO DAILY 30 Days #30 tablet 02/28/19 Anemia: No Asthma: No Cancer: No Cardiac Disorders: No CVA: No COPD: No CHF: No Dementia: No Diabetes: No GI Disorders: No Disorders: No HTN: Yes Hypercholesterolemia: No Liver Disease: No Seizures: No Thyroid Disease: No - Surgical History Abdominal Surgery: No Appendectomy: No Cardiac Surgery: No Cholecystectomy: Yes Lung Surgery: No Neurologic Surgery: No Orthopedic Surgery: No - Immunization History Immunization Up to Date: No - Psycho Social/Smoking Cessation Hx Smoking History: Never smoked Have you smoked in the past 12 months: No Hx Alcohol Use: No Drug/Substance Use Hx: No Substance Use Type: None Hx Substance Use Treatment: No *Physical Exam - Vital Signs Last Vital Signs Temp Pulse Resp BP Pulse Ox 98.2 F 82 19 195/73 H 96 12/06/19 19:35 12/06/19 19:35 12/06/19 19:35 12/06/19 19:35 12/06/19 19:35 ED Treatment Course - LABORATORY CBC & Chemistry Diagram: 12/06/19 20:00 12/06/19 22:40 Discharge - Discharge Information Problems reviewed: Yes Clinical Impression/Diagnosis: Left leg pain Hypertension Qualifiers: Hypertension type: unspecified Qualified Code(s): I10 - Essential (primary) hypertension Condition: Stable Disposition: HOME - Follow up/Referral Referrals: Guanako Bhatia [Primary Care Provider] - - Patient Discharge Instructions Patient Printed Discharge Instructions: How to Monitor Your Blood Pressure at Home Additional Instructions: You came into the emergency department for high blood pressure readings. Lab work, Xray, and EKG did not indicate acute pathology. An ultrasound of your left leg did not show a blood clot. Follow-up with your primary care provider within 72 hours to discuss this ED visit and to further evaluate your symptoms. Call today or tomorrow morning and make an appointment. Your workup is not complete until you do so. Immediate medical attention is required if: you pass out, have any chest pain, shortness of breath, severe headaches, changes in vision, focal numbness or weakness, any severe abdominal pain, any black tarry stool, or any new or concerning symptoms. If you think you are having an emergency, call for emergency medical services or present to the emergency department right away. - Post Discharge Activity
[2019-12-06 21:36] LABS: BASO % 1.3 % (0-2.0); EOS % 1.8 % (0-4.5); HEMATOCRIT 40.2 % (32.4-45.2); HEMOGLOBIN 13.1 GM/dL (10.7-15.3); LYMPH % 17.4 % (8-40); MCH 29.3 pg (25.7-33.7); MCHC 32.7 g/dl (32.0-36.0); MEAN CELL VOLUME 89.7 fl (80-96); MEAN PLT VOLUME 10.5 fl (7.5-11.1); MONO % 8.1 % (3.8-10.2); NEUT % 71.4 % (42.8-82.8); PLATELET COUNT 139 K/MM3 (134-434); RBC 4.48 M/mm3 (3.60-5.2); RDW 14.6 % (11.6-15.6); WHITE BLOOD COUNT 4.8 K/mm3 (4.0-10.0)
[2019-12-06 21:52] LABS: INR 0.97 (0.83-1.09); PROTHROMBIN TIME (PATIENT) 11.4 SEC (9.7-13.0)
--- NOTE | 2019-12-06 23:05 | PDOC ---
Documentation entered by Lorena Vasquez SCRIBE, acting as scribe for Phylicia Decker DO. Phylicia Decker DO: This documentation has been prepared by the katy, Lorena Vasquez SCRIBE, under my direction and personally reviewed by me in its entirety. I confirm that the documentation accurately reflects all work, treatment, procedures, and medical decision making performed by me. Attending Attestation - Resident Resident Name: Sanjuanita Owens - ED Attending Attestation I have performed the following: I have examined & evaluated the patient, The case was reviewed & discussed with the resident, I agree w/resident's findings & plan - HPI HPI: 12/06/19 21:16 The patient is a 79 year old female with a significant PMH of HTN who presents to the emergency department for high blood pressure reading at home today. Pt states she takes her BP intermittently at home and the patient is compliant with her BP medications. Pt reports having a knot on her leg that is tender to palpation. The patient denies chest pain, shortness of breath, headache and dizziness. Denies fever, chills, cough, nausea, vomiting, diarrhea and constipation. Denies dysuria, frequency, urgency and hematuria. Allergies: NKDA PCP: Guanako Valdovinos - Physicial Exam PE: 12/06/19 21:16 Agree with resident exam. - Medical Decision Making 12/06/19 22:52 Patient has been asymptomatic in the emergency department Repeat blood pressure is 161/68 EKG shows no acute abnormalities Plan for labs DC home pending results
[2019-12-06 23:25] LABS: ALBUMIN 3.3 g/dl (3.4-5.0); BILIRUBIN,TOTAL 0.6 mg/dL (0.2-1); BLOOD UREA NITROGEN 14.7 mg/dL (7-18); CREATININE 0.7 mg/dL (0.55-1.3); POTASSIUM 4.4 mmol/L (3.5-5.1); TOT PROT 7.2 g/dl (6.4-8.2)
[2019-12-07 00:07] VITALS: BP 170/88
[2019-12-07 00:09] VITALS: PULSE 69
--- NOTE | 2019-12-07 14:13 | EKG ---
Test Reason : Blood Pressure : / mmHG Vent. Rate : 059 BPM Atrial Rate : 059 BPM P-R Int : 230 ms QRS Dur : 090 ms QT Int : 430 ms P-R-T Axes : 059 006 042 degrees QTc Int : 425 ms SINUS BRADYCARDIA WITH 1ST DEGREE A-V BLOCK WITH PREMATURE ATRIAL COMPLEXES CANNOT RULE OUT ANTERIOR INFARCT , AGE UNDETERMINED ABNORMAL ECG Confirmed by MD COBY, HIREN ([id number]) on 12/07/2019 2:13:13 PM Referred By: Confirmed By:HIREN TENORIO MD
== END 2019-12-07 00:09 | disposition home or self-care (01) ==
LOC: JER 19:25
DX: I10 Essential (primary) hypertension (principal); M79.662 Pain in left lower leg; Z90.49 Acquired absence of other specified parts of digestive tract
CPT/HCPCS: 36415; 71046-TC-FY; 80053; 84484; 85025; 85610; 93005; 93010; 93971-TC; 99283-25

== ENCOUNTER 2023-09-05 03:57 | Day surgery (SDC) | payer OTHER ==
[2023-09-04 15:43] VITALS: BMI 32.3
[~2023-09-05 03:57] MED LIST: LIDOCAINE HCL 1%, 10 MG/ML (50 mL VIAL) SQ ONE
[2023-09-05] MEDS ORDERED: LIDOCAINE HCL 1%, 10 MG/ML (50 mL VIAL) SQ ONE (09:18)
[2023-09-05 15:16] VITALS: BP 135/63; PULSE 70; RESP 20; TEMP 97.2
== END 2023-09-05 10:09 | disposition home or self-care (01) ==
LOC: JASU-SURG 03:57
PROVIDERS: ATTEND Orthopaedic Surgery
PROC: 015D0ZZ Destruction of Femoral Nerve, Open Approach (ICD-10-PCS; principal; 2023-09-05 09:30)
DX: M17.12 Unilateral primary osteoarthritis, left knee (principal)

== ENCOUNTER 2023-10-18 14:23 | Emergency (ER) | payer OTHER ==
[2023-10-18 14:29] VITALS: BP 154/58; PULSE 87; RESP 18; TEMP 97.7; BMI 31.2
== END 2023-10-18 20:08 | disposition home or self-care (01) ==
LOC: JERFT 14:23
PROC: 0HQ0XZZ Repair Scalp Skin, External Approach (ICD-10-PCS; principal; 2023-10-18)
DX: S01.01XA Laceration without foreign body of scalp, initial encounter (principal); W10.8XXA Fall (on) (from) other stairs and steps, initial encounter; Y92.9 Unspecified place or not applicable
CPT/HCPCS: 12002-25; 70450-TC; 70486-TC; 71046-TC-FY; 72125-TC; 72170-TC-FY; 73070-TC-LT-FY; 99284-25

== ENCOUNTER 2024-07-14 15:19 | Observation (INO) | payer OTHER ==
[2024-07-14 15:33] VITALS: RESP 18
[2024-07-14 16:58] LABS: BASO % 0.6 % (0-2.0); EOS % 1.6 % (0-4.5); HEMATOCRIT 38.2 % (32.4-45.2); HEMOGLOBIN 12.9 GM/dL (10.7-15.3); MCH 30.4 pg (25.7-33.7); MCHC 33.7 g/dl (32.0-36.0); MEAN CELL VOLUME 90.1 fl (80-96); MEAN PLT VOLUME 9.5 fl (7.5-11.1); MONO % 6.9 % (3.8-10.2); NEUT % 77.9 % (42.8-82.8); PLATELET COUNT 135 10^3/uL (134-434); RBC 4.24 M/mm3 (3.60-5.2); WHITE BLOOD COUNT 6.5 K/mm3 (4.0-10.0)
[2024-07-14 17:30] LABS: POTASSIUM 3.6 mmol/L (3.5-5.1)
[2024-07-14 17:32] LABS: BLOOD UREA NITROGEN 29.4 mg/dL (7-18); CALCIUM 9.3 mg/dL (8.5-10.1)
[2024-07-14 17:33] LABS: ALBUMIN 3.4 g/dl (3.4-5.0)
[2024-07-14 17:37] LABS: BILIRUBIN,TOTAL 0.4 mg/dL (0.2-1); TOT PROT 7.1 g/dl (6.4-8.2)
[2024-07-14] MEDS: SODIUM CHLORIDE 0.9% 500 ML INFUS.BAG IV ONE (18:13)
[2024-07-14 20:22] LABS: EPI CELLS 2 /uL (0-25.1); HYALINE CASTS 0 /uL (0-3.1); URINE APPEARANCE CLEAR; URINE BACTERIA 11 /uL (0-1359); URINE BILIRUBIN NEGATIVE (NEGATIVE); URINE COLOR YELLOW; URINE GLUCOSE (UA) NEGATIVE (NEGATIVE); URINE KETONE NEGATIVE (NEGATIVE); URINE LEUK ESTERASE TRACE (NEGATIVE); URINE NITRITE NEGATIVE (NEGATIVE); URINE PROTEIN NEGATIVE (NEGATIVE); URINE RBC 7 /uL (0-23.9); URINE UROBILINOGEN 0.2 mg/dL (0.2-1.0); URINE WBC 8 /uL (0-25.8)
[2024-07-14] MEDS ORDERED: ACETAMINOPHEN 500 MG TABLET (FP) PO PRN (22:41)
[2024-07-15 00:41] VITALS: BMI 34.4
[2024-07-15 08:32] LABS: BASO % 0.8 % (0-2.0); EOS % 2.4 % (0-4.5); HEMOGLOBIN 11.8 GM/dL (10.7-15.3); LYMPH % 21.6 % (8-40); MCH 29.9 pg (25.7-33.7); MCHC 32.6 g/dl (32.0-36.0); MEAN CELL VOLUME 91.6 fl (80-96); MEAN PLT VOLUME 9.7 fl (7.5-11.1); MONO % 8.4 % (3.8-10.2); NEUT % 66.8 % (42.8-82.8); PLATELET COUNT 124 10^3/uL (134-434); RBC 3.93 M/mm3 (3.60-5.2); RDW 14.6 % (11.6-15.6); WHITE BLOOD COUNT 4.8 K/mm3 (4.0-10.0)
[2024-07-15 08:36] LABS: POTASSIUM 3.8 mmol/L (3.5-5.1)
[2024-07-15 08:39] VITALS: PULSE 71
[2024-07-15 08:40] LABS: BLOOD UREA NITROGEN 17.1 mg/dL (7-18); CALCIUM 9.3 mg/dL (8.5-10.1); MAGNESIUM 2.2 mg/dL (1.8-2.4)
[2024-07-15 08:43] LABS: CREATININE 0.6 mg/dL (0.55-1.3)
[2024-07-15 08:44] LABS: PHOSPHOROUS 3.2 mg/dL (2.5-4.9)
[2024-07-15 08:45] LABS: BILIRUBIN,TOTAL 0.6 mg/dL (0.2-1); TOT PROT 6.4 g/dl (6.4-8.2)
[2024-07-15] MEDS: amLODIPine BESYLATE 5 MG TABLET (FP) PO ONE (08:49)
[2024-07-15] MEDS ORDERED: REGADENOSON 0.4 MG/5 ML PRE-FILLED SYRINGE IVPUSH ONE (09:35)
[2024-07-15] MEDS: REGADENOSON 0.4 MG/5 ML PRE-FILLED SYRINGE IVPUSH ONE (11:45)
[2024-07-15] MEDS: LOSARTAN 50MG/HCTZ 12.5MG 1 TAB PO SCH (13:26)
[2024-07-15] MEDS: ENOXAPARIN NA (PORCINE) 40 MG/0.4 ML DISP.SYRIN SQ SCH (13:26)
[2024-07-15 13:42] VITALS: BP 155/78; TEMP 98.8
[2024-07-15] MEDS: ASPIRIN 81 MG CHEWABLE TABLETS PO SCH (17:15)
[2024-07-15] MEDS ORDERED: ATORVASTATIN CA 20 MG TABLET (FP) PO SCH (22:00)
[2024-07-16] MEDS ORDERED: amLODIPine BESYLATE 5 MG TABLET (FP) PO SCH (10:00)
== END 2024-07-15 18:22 | disposition home or self-care (01) ==
LOC: JER 15:19 → JERBED 18:27 → UNDOADMOB 18:27 → INTOOBSV 22:03 → OBSVTOIN 22:03 → J4S 22:41 → JERBED 22:41 → J4S 07-15 10:17
PROVIDERS: ADMIT Internal Medicine; ATTEND Nurse Practitioner
PROC: 3E023GC Introduction of Other Therapeutic Substance into Muscle, Percutaneous Approach (ICD-10-PCS; principal; 2024-07-15)
PROC: 3E033GC Introduction of Other Therapeutic Substance into Peripheral Vein, Percutaneous Approach (ICD-10-PCS; 2024-07-15)
PROC: 3E0337Z Introduction of Electrolytic and Water Balance Substance into Peripheral Vein, Percutaneous Approach (ICD-10-PCS; 2024-07-15)
DX: R55 Syncope and collapse (principal); I10 Essential (primary) hypertension; E78.5 Hyperlipidemia, unspecified; H35.30 Unspecified macular degeneration; Z96.651 Presence of right artificial knee joint; W18.39XA Other fall on same level, initial encounter; Y93.89 Activity, other specified; Y92.008 Other place in unspecified non-institutional (private) residence as the place of occurrence of the external cause; Z90.49 Acquired absence of other specified parts of digestive tract
CPT/HCPCS: 36415; 70450-TC; 71045-TC-FY; 72125-TC; 72170-TC-FY; 78452-TC; 80053; 81003; 83735; 84100; 84484; 85025; 87086; 93005; 93010; 93017; 93306-TC; 96372; 96374; 99285-25; A9502; G0378; J2785